=== PATIENT | male | born 1985 | race Caucasian/White ===

== ENCOUNTER → 2016-10-12 | Outpatient (CLI) | payer BC, OTHER ==
--- NOTE | 2016-10-12 21:35 | REP ---
SOFT TISSUE NECK RADIOGRAPHS: CLINICAL: Sleep apnea. TECHNIQUE: AP and lateral soft tissue neck radiographs. FINDINGS: The airway appears patent and normal. The surrounding soft tissues are unremarkable. Prevertebral soft tissues are normal. Osseous structures are intact and normal for age. IMPRESSION: Normal patent appearing nasopharyngeal airway. Unreviewed
== END ==
LOC: M SMT 14:30
PROVIDERS: ATTEND Nurse Practitioner Family
DX: R06.83 Snoring (principal)

== ENCOUNTER 2016-12-29 16:01 | Emergency (ER) | payer BC, OTHER ==
[~2016-12-29] VITALS: Ht 182.9 cm; Wt 129.6 kg
[2016-12-29] MEDS ORDERED: PATA0.2S (16:15)
[2016-12-29] MEDS ORDERED: PROAAER10 (16:15)
[2016-12-29] MEDS ORDERED: VERA120C3 (16:15)
[2016-12-29] MEDS ORDERED: FLUT1SPR2 (16:15)
[2016-12-29] MEDS ORDERED: ZONI100C2 (16:15)
[2016-12-29] MEDS ORDERED: BREO1INH (16:15)
[2016-12-29] MEDS ORDERED: LEVOTAB10 (16:15)
[2016-12-29] MEDS ORDERED: METOCLOPRAMIDE INJ 10MG/2ML VIAL (J2765) IV ONE (16:30)
[2016-12-29] MEDS ORDERED: KETOROLAC 60 MG/2 ML VIAL (J1885) IM ONE (16:30)
[2016-12-29] MEDS ORDERED: ACETAMINOPHEN 325 MG TAB PO ONE (16:30)
[2016-12-29] MEDS ORDERED: NS 1,000 ML IV ONE (16:30)
[2016-12-29] MEDS ORDERED: KETOROLAC 30 MG/ML VIAL (J1885) As Ordered ONE (16:36)
[2016-12-29] MEDS ORDERED: KETOROLAC 30 MG/ML VIAL (J1885) IV ONE (16:45)
[2016-12-29] MEDS ORDERED: IBUP80TA PO (18:00)
[2016-12-29] MEDS ORDERED: ZOFR4TAB3 PO (18:00)
[2016-12-29 18:05] VITALS: BP 153/87
== END 2016-12-29 18:07 | disposition home or self-care (01) ==
LOC: M ED 16:01
DX: G44.301 Post-traumatic headache, unspecified, intractable (principal); F07.81 Postconcussional syndrome; Z87.820 Personal history of traumatic brain injury; Z79.899 Other long term (current) drug therapy; Z79.52 Long term (current) use of systemic steroids
CPT/HCPCS: 96361; 96372; 96374; 96375; 99283; J1885; J2765

== ENCOUNTER → 2017-02-08 | Outpatient (CLI) | payer BC, OTHER ==
[~2017-02-08] MED LIST: BREO1INH; FLUT1SPR2; IBUP80TA PO; LEVOTAB10; PATA0.2S; PROAAER10; VERA120C3; ZOFR4TAB3 PO; ZONI100C2
--- NOTE | 2017-02-13 08:50 | SLEEPCENT ---
DATE OF PROCEDURE: 02/04/2017 ORDERED BY: Berna Phillips. INTERPRETATION: Nocturnal polysomnography was performed due to concern for the obstructive sleep apnea syndrome. 7 hours and 11 minutes of data were reviewed. There were 227 minutes of sleep identified. Sleep latency was prolonged at 54 minutes. REM latency was short at 77 minutes. Sleep architecture showed poor progression and fragmentation. Overall sleep efficiency was 53%. The patient's EKG showed a sinus rhythm with an average heart rate of 65 beats per minute. EEG showed normal wave forms for awake and sleep. There were 184 respiratory events identified of 10 seconds in duration or greater for an apnea-hypopnea index of 48.5. The events were primarily obstructive though some central events were seen late in the study. Events were associated with arousals 16.9 times per hour and oxygen desaturations. Having clearly identified the obstructive sleep apnea syndrome, testing was stopped shortly before 1 a.m. for the application of pressure therapy. The patient was fit with a [employer] Quattro full face mask of medium size, 4 cm of water pressure were applied to the circuit and the lights were extinguished. The patient had difficulty falling back to sleep with CPAP. Eventually did fall asleep but then awoke unable to continue with the mask late in the study. Testing was completed as a diagnostic study, therefore. IMPRESSION: Severe obstructive sleep apnea syndrome (G47.33). Apnea-hypopnea index 48.5. RECOMMENDATION: The patient should be referred back to the sleep disorder center for pressure therapy. Given his experience during this test, use of a bilevel device and a backup rate may be necessary. cc: MENDEL Webster
== END ==
LOC: M SLEEP 19:58
PROVIDERS: ATTEND Nurse Practitioner Adult Health
DX: G47.33 Obstructive sleep apnea (adult) (pediatric) (principal)

== ENCOUNTER → 2017-03-17 | Outpatient (CLI) | payer BC, OTHER ==
--- NOTE | 2017-03-24 00:28 | SLEEPCENT ---
DATE OF PROCEDURE: 03/17/2017 ORDERED BY: Berna Phillips Nocturnal polysomnography was performed for the titration of pressure therapy in this patient with obstructive sleep apnea syndrome, apnea-hypopnea index 48.5. For testing, the patient was fit with a [employer] Simplus full-face mask of medium size, 5 cm of water pressure were applied to the circuit and the lights were extinguished. 7 hours and 57 minutes of data were reviewed. There were 223 minutes of sleep identified. Sleep latency was prolonged at 61 minutes. Rapid eye movement (REM) latency was prolonged at 178 minutes. Sleep architecture improved late in the study with optimal pressure therapy. There were two REM periods appreciated. Overall sleep efficiency was only 47.3% due to periods of wake early in the study. The patient's EKG showed a sinus rhythm with an average heart rate of 75 beats per minute. EEG showed reasonably normal waveforms for awake and sleep. Respiratory events were fully palliated with continuous positive airway pressure (CPAP) at a pressure of +10 and remaining measures of sleep physiology were normal. IMPRESSION: Obstructive sleep apnea syndrome (G47.33). RECOMMENDATION: Nightly use of pressure therapy 10 cm of water. Copy To: Gina Lechuga
== END ==
LOC: M SLEEP 19:35
PROVIDERS: ATTEND Nurse Practitioner Adult Health
DX: G47.33 Obstructive sleep apnea (adult) (pediatric) (principal)

== ENCOUNTER → 2021-12-12 | Outpatient (REF) | payer OTHER ==
[~2021-12-12] MED LIST changes: +EXCETAB32 PO; +FLUO20CA22 PO; +JANU100T PO; +OLOP2.5D3; -PATA0.2S; +ZOFR4TAB14 PO; -ZOFR4TAB3 PO; -ZONI100C2; +ZONI100C67
[2021-12-12 17:48] LABS: CLOSTRIDIUM DIFFICILE PCR NEGATIVE (NEGATIVE)
[2021-12-19 11:09] LABS: CALPROTECTIN STOOL 48 ug/g (0-120); FATS NEUTRAL Normal (.); FATS TOTAL Normal (.); H PYLORI STOOL ANTIGEN Negative (Negative)
== END ==
LOC: M LAB REF 16:06
PROVIDERS: ATTEND Internal Medicine Gastroenterology
DX: K52.9 Noninfective gastroenteritis and colitis, unspecified (principal)

== ENCOUNTER → 2021-12-14 | Outpatient (CLI) | payer BC, OTHER | LOC: M LABSMTC 09:30 | PROVIDERS: ATTEND Anesthesiology | DX: Z01.818 Encounter for other preprocedural examination (principal); Z11.52 Encounter for screening for COVID-19 ==

== ENCOUNTER 2021-12-19 06:43 | Day surgery (SDC) | payer OTHER ==
[~2021-12-19] VITALS: Ht 180.3 cm; Wt 129.7 kg
[~2021-12-19 06:43] MED LIST changes: +NS 1,000 ML IV ONE
[2021-12-19] MEDS ORDERED: SIMETHICONE 40MG/0.6ML DROPS 30ML As Ordered ONE (06:44)
[2021-12-19] MEDS ORDERED: propofoL 200 MG/20 ML VIAL As Ordered ONE ×3 (07:29→08:00)
[2021-12-19 08:38] VITALS: BP 134/78
== END 2021-12-19 08:35 | disposition home or self-care (01) ==
LOC: M OPP 06:43
PROVIDERS: ATTEND Internal Medicine Gastroenterology
DX: D12.2 Benign neoplasm of ascending colon (principal); K64.8 Other hemorrhoids; Z98.0 Intestinal bypass and anastomosis status; K52.832 Lymphocytic colitis; Z79.1 Long term (current) use of non-steroidal anti-inflammatories (NSAID); Z79.84 Long term (current) use of oral hypoglycemic drugs; Z79.899 Other long term (current) drug therapy; Z80.1 Family history of malignant neoplasm of trachea, bronchus and lung

== ENCOUNTER → 2024-04-28 | Outpatient (CLI) | payer BC ==
[~2024-04-28] MED LIST changes: +FLUO-365 PO; -FLUO20CA22 PO; -NS 1,000 ML IV ONE
== END ==
LOC: M RAD 13:46
PROVIDERS: ATTEND Physician Assistant
DX: R10.2 Pelvic and perineal pain (principal)

== ENCOUNTER 2024-08-28 11:36 | Emergency (ER) | payer BC ==
[~2024-08-28] VITALS: Ht 180.3 cm; Wt 115.7 kg
[2024-08-28] MEDS ORDERED: SEMA1PEN2 (11:47)
[2024-08-28] MEDS ORDERED: ONDA-282 (11:47)
[2024-08-28 12:43] LABS: BASO # 0.1 10^3/uL (0.0-0.2); BASO % 0.6 % (0.0-1.0); EOS # 0.6 10^3/uL (0.0-0.5); EOS % 4.6 % (0.0-3.0); HEMATOCRIT 49.4 % (42.0-52.0); HEMOGLOBIN 16.7 g/dl (13.5-17.5); LYMPH # 2.4 10^3/uL (1.5-5.0); LYMPH % 18.8 % (24.0-44.0); MEAN CORPUSCULAR HEMOGLOBIN 30.2 pg (27.0-33.0); MEAN CORPUSCULAR HGB CONC 33.8 g/dl (32.0-36.5); MEAN CORPUSCULAR VOLUME 89.3 fl (80.0-96.0); MONO # 0.8 10^3/uL (0.0-0.8); MONO % 5.9 % (2.0-8.0); NEUTROPHILS # 8.9 10^3/uL (1.5-8.5); NEUTROPHILS % 69.7 % (36.0-66.0); PLATELET COUNT, AUTOMATED 275 10^3/uL (150-450); RED BLOOD COUNT 5.53 10^6/uL (4.30-6.10); WHITE BLOOD COUNT 12.7 10^3/uL (4.0-10.0)
[2024-08-28] MEDS ORDERED: MORPHINE 2 MG/ML 1ML VIAL IV PRN (13:05)
[2024-08-28 13:12] LABS: LIPASE 57 U/L (12-53)
[2024-08-28 13:14] LABS: ALBUMIN 4.7 G/DL (3.2-5.2); ALKALINE PHOSPHATASE 90 U/L (40-129); ALT/SGPT 37 U/L (7.0-40); AST/SGOT 21 U/L (<34); BILIRUBIN,DIRECT 0.3 MG/DL (<0.4); BILIRUBIN,TOTAL 1.2 MG/DL (0.3-1.2); BLOOD UREA NITROGEN 15 MG/DL (9-23); CALCIUM LEVEL 10.2 MG/DL (8.5-10.1); CARBON DIOXIDE LEVEL 26 MMOL/L (20-31); CHLORIDE LEVEL 100 MMOL/L (98-107); CREATININE FOR GFR 0.87 MG/DL (0.70-1.30); GLOMERULAR FILTRATION RATE > 60.0 (>60); GLUCOSE, FASTING 129 MG/DL (60-100); POTASSIUM SERUM 4.2 MMOL/L (3.5-5.1); SODIUM LEVEL 139 MMOL/L (136-145); TOTAL PROTEIN 8.3 G/DL (5.7-8.2)
[2024-08-28] MEDS: NS (Normal Saline) 0.9% 1,000 ML IV ONE (13:16)
[2024-08-28] MEDS: ONDANSETRON 4MG 2ML VIAL IV ONE (13:17)
[2024-08-28] MEDS ORDERED: ISOVUE-370 76% 100ML VIAL As Ordered ONE (13:41)
[2024-08-28] MEDS: ACETAMINOPHEN 325 MG TAB PO ONE (13:41)
[2024-08-28] MEDS: PROMETHAZINE 25MG/ML 1ML VIAL IV ONE (14:18)
[2024-08-28] MEDS ORDERED: PROM25TA12 PO (17:15)
[2024-08-28 17:21] VITALS: BP 147/77; TEMP 96.8; O2SAT 96
== END 2024-08-28 17:30 | disposition home or self-care (01) ==
LOC: M ED 11:36
DX: R11.2 Nausea with vomiting, unspecified (principal); E11.9 Type 2 diabetes mellitus without complications; F12.10 Cannabis abuse, uncomplicated; Z87.820 Personal history of traumatic brain injury; Z79.1 Long term (current) use of non-steroidal anti-inflammatories (NSAID); Z79.4 Long term (current) use of insulin; Z79.899 Other long term (current) drug therapy
CPT/HCPCS: 74177; 80048; 80076; 83690; 85025; 93041; 96361; 96374; 96375; 99285; J2405; J2550; Q9967

== ENCOUNTER 2025-03-20 06:38 | Day surgery (SDC) | payer BC ==
[~2025-03-20] VITALS: Ht 177.8 cm; Wt 111.6 kg
[~2025-03-20 06:38] MED LIST changes: +BUDE10.3 IH; +CETI10TA4 PO; +HYDR-3713 PO; +LIDOCAINE 2% 100 MG/5 ML SDV (FOR ANES.) As Ordered ONE; +ONDA-282; +PROM25TA12 PO; +SEMA0.257 SQ; +SEMA1PEN2; -VERA120C3; +VERA120C9; +medical marijuana
[2025-03-20 07:50] VITALS: TEMP 97.5
[2025-03-20 08:15] VITALS: BP 128/74; O2SAT 94
== END 2025-03-20 08:18 | disposition home or self-care (01) ==
LOC: M OPP 06:38
PROVIDERS: ATTEND Internal Medicine Gastroenterology
DX: D12.2 Benign neoplasm of ascending colon (principal); Z86.0101 Personal history of adenomatous and serrated colon polyps; G47.30 Sleep apnea, unspecified; Z79.891 Long term (current) use of opiate analgesic; Z79.85 Long-term (current) use of injectable non-insulin antidiabetic drugs; Z79.899 Other long term (current) drug therapy; J45.909 Unspecified asthma, uncomplicated